=== PATIENT | male | born 1980 | race Two or more races ===

== ENCOUNTER 2017-08-22 11:37 | Outpatient (CLI) | payer OTHER ==
[~2017-08-22] VITALS: Ht 182.9 cm; Wt 129.3 kg
== END 2017-08-22 12:00 | disposition home or self-care (01) ==
LOC: OFIC 805 11:37
DX: H70.11 Chronic mastoiditis, right ear (principal); H69.83 Other specified disorders of Eustachian tube, bilateral; H90.11 Conductive hearing loss, unilateral, right ear, with unrestricted hearing on the contralateral side

== ENCOUNTER 2017-09-12 08:46 | Outpatient (CLI) | payer OTHER ==
[~2017-09-12] VITALS: Ht 182.9 cm; Wt 129.3 kg
== END 2017-09-12 09:00 | disposition home or self-care (01) ==
LOC: OFIC 805 08:46
DX: H70.11 Chronic mastoiditis, right ear (principal); J31.0 Chronic rhinitis; H61.23 Impacted cerumen, bilateral; H90.6 Mixed conductive and sensorineural hearing loss, bilateral

== ENCOUNTER 2017-12-26 11:39 | Outpatient (CLI) | payer OTHER ==
[~2017-12-26] VITALS: Ht 185.4 cm; Wt 131.1 kg
== END 2017-12-26 12:00 | disposition home or self-care (01) ==
LOC: OFIC 805 11:39
DX: H70.11 Chronic mastoiditis, right ear (principal); H61.23 Impacted cerumen, bilateral; H90.6 Mixed conductive and sensorineural hearing loss, bilateral

== ENCOUNTER 2018-04-17 07:41 | Outpatient (CLI) | payer OTHER ==
[~2018-04-17] VITALS: Ht 182.9 cm; Wt 131.1 kg
== END 2018-04-17 08:00 | disposition home or self-care (01) ==
LOC: OFIC 805 07:41
DX: H70.11 Chronic mastoiditis, right ear (principal); H61.23 Impacted cerumen, bilateral; H90.6 Mixed conductive and sensorineural hearing loss, bilateral; J31.0 Chronic rhinitis

== ENCOUNTER 2018-07-01 12:11 | Outpatient (CLI) | payer OTHER ==
[~2018-07-01] VITALS: Ht 182.9 cm; Wt 131.1 kg
== END 2018-07-01 12:35 | disposition home or self-care (01) ==
LOC: OFIC 805 12:11
DX: H70.10 Chronic mastoiditis, unspecified ear (principal); H61.23 Impacted cerumen, bilateral; H90.6 Mixed conductive and sensorineural hearing loss, bilateral; J31.0 Chronic rhinitis; J32.4 Chronic pansinusitis

== ENCOUNTER 2018-07-01 14:57 | Outpatient (CLI) | payer OTHER | END 2018-07-01 15:27 | disposition home or self-care (01) | LOC: TOM 14:57 | DX: J32.4 Chronic pansinusitis (principal) ==

== ENCOUNTER 2018-11-06 11:43 | Outpatient (CLI) | payer OTHER ==
[~2018-11-06] VITALS: Ht 182.9 cm; Wt 129.3 kg
== END 2018-11-06 12:00 | disposition home or self-care (01) ==
LOC: OFIC 805 11:43
DX: H70.11 Chronic mastoiditis, right ear (principal); H61.23 Impacted cerumen, bilateral; H90.6 Mixed conductive and sensorineural hearing loss, bilateral; J31.0 Chronic rhinitis; J32.4 Chronic pansinusitis

== ENCOUNTER 2019-02-19 11:42 | Outpatient (CLI) | payer OTHER ==
[~2019-02-19] VITALS: Ht 182.9 cm; Wt 129.3 kg
== END 2019-02-19 14:45 | disposition home or self-care (01) ==
LOC: OFIC 805 11:42
DX: H70.11 Chronic mastoiditis, right ear (principal); H61.23 Impacted cerumen, bilateral; H90.6 Mixed conductive and sensorineural hearing loss, bilateral; J31.0 Chronic rhinitis; J32.4 Chronic pansinusitis

== ENCOUNTER 2019-06-22 12:34 | Outpatient (CLI) | payer OTHER ==
[~2019-06-22] VITALS: Ht 182.9 cm; Wt 131.1 kg
== END 2019-06-22 16:16 | disposition home or self-care (01) ==
LOC: OFIC 805 12:34
DX: J31.0 Chronic rhinitis (principal); H61.23 Impacted cerumen, bilateral; H90.6 Mixed conductive and sensorineural hearing loss, bilateral; H70.891 Other mastoiditis and related conditions, right ear; R04.0 Epistaxis

== ENCOUNTER → 2019-10-19 14:40 | Outpatient (CLI) | payer OTHER | END | disposition home or self-care (01) | LOC: OFIC 805 14:30 | PROVIDERS: ATTEND Otolaryngology | DX: H72.91 Unspecified perforation of tympanic membrane, right ear (principal); J32.4 Chronic pansinusitis; J31.0 Chronic rhinitis; H90.6 Mixed conductive and sensorineural hearing loss, bilateral; H61.23 Impacted cerumen, bilateral ==

== ENCOUNTER 2019-11-08 16:05 | Outpatient (CLI) | payer OTHER | END 2019-11-08 16:37 | disposition home or self-care (01) | LOC: TOM 16:05 | PROVIDERS: ATTEND Otolaryngology | DX: H72.93 Unspecified perforation of tympanic membrane, bilateral (principal) ==

== ENCOUNTER 2019-11-12 08:50 | Outpatient (CLI) | payer OTHER | END 2019-11-12 09:30 | disposition home or self-care (01) | LOC: OFIC 805 08:50 | PROVIDERS: ATTEND Otolaryngology Otology & Neurotology | DX: H70.11 Chronic mastoiditis, right ear (principal); H90.6 Mixed conductive and sensorineural hearing loss, bilateral; H72.91 Unspecified perforation of tympanic membrane, right ear ==

== ENCOUNTER 2019-12-27 13:51 | Outpatient (CLI) | payer OTHER ==
[2019-12-27] MEDS ORDERED: LIPITOR40 M1 (15:03)
[2020-01-03] MEDS ORDERED: ZYRTEC PO (08:07)
[2020-01-03] MEDS ORDERED: ATORVASTATIN CA20 MG PO (08:07)
[2020-01-03] MEDS ORDERED: IRBESARTAN PO (08:08)
== END 2019-12-27 19:19 | disposition home or self-care (01) ==
LOC: OFIC 805 13:51
PROVIDERS: ATTEND Otolaryngology Otology & Neurotology
DX: H72.91 Unspecified perforation of tympanic membrane, right ear (principal); H61.23 Impacted cerumen, bilateral; H90.6 Mixed conductive and sensorineural hearing loss, bilateral

== ENCOUNTER 2020-01-07 06:00 | Day surgery (SDC) | payer OTHER ==
[~2020-01-07 06:00] MED LIST: ATORVASTATIN CA20 MG PO; IRBESARTAN PO; LIPITOR40 M1; ZYRTEC PO
[2020-01-07] MEDS ORDERED: CIPRODEX OTIC7.5 ML OT (11:24)
[2020-01-07] MEDS ORDERED: KEFLEX500 MG PO (11:25)
[2020-01-07] MEDS ORDERED: ZOFRAN8 MG TL (11:26)
[2020-01-07] MEDS ORDERED: PERCOCET 5-3251 EACH PO (11:26)
== END 2020-01-07 15:40 | disposition home or self-care (01) ==
LOC: CIR.AMB 06:00
PROVIDERS: ATTEND Otolaryngology Otology & Neurotology
DX: H71.01 Cholesteatoma of attic, right ear (principal); H80.01 Otosclerosis involving oval window, nonobliterative, right ear; Z20.828 Contact with and (suspected) exposure to other viral communicable diseases; H74.21 Discontinuity and dislocation of right ear ossicles; H71.11 Cholesteatoma of tympanum, right ear; H90.A11 Conductive hearing loss, unilateral, right ear with restricted hearing on the contralateral side; H72.01 Central perforation of tympanic membrane, right ear

== ENCOUNTER 2020-01-14 10:06 | Outpatient (CLI) | payer OTHER ==
[~2020-01-14 10:06] MED LIST changes: +CIPRODEX OTIC7.5 ML OT; +KEFLEX500 MG PO; +PERCOCET 5-3251 EACH PO; +ZOFRAN8 MG TL
== END 2020-01-14 10:13 | disposition home or self-care (01) ==
LOC: OFIC 805 10:06
PROVIDERS: ATTEND Otolaryngology Otology & Neurotology
DX: H72.91 Unspecified perforation of tympanic membrane, right ear (principal); H71.91 Unspecified cholesteatoma, right ear

== ENCOUNTER 2020-02-18 09:03 | Outpatient (CLI) | payer OTHER | END 2020-02-18 10:00 | disposition home or self-care (01) | LOC: OFIC 805 09:03 | PROVIDERS: ATTEND Otolaryngology Otology & Neurotology | DX: H71.91 Unspecified cholesteatoma, right ear (principal); H72.91 Unspecified perforation of tympanic membrane, right ear; H90.6 Mixed conductive and sensorineural hearing loss, bilateral ==

== ENCOUNTER → 2020-03-08 | Outpatient (CLI) | payer OTHER | END | disposition home or self-care (01) | LOC: OFIC 805 13:00 | PROVIDERS: ATTEND Otolaryngology Otology & Neurotology | DX: H61.22 Impacted cerumen, left ear (principal); H71.91 Unspecified cholesteatoma, right ear; H72.93 Unspecified perforation of tympanic membrane, bilateral ==

== ENCOUNTER 2020-06-21 14:35 | Outpatient (CLI) | payer OTHER | END 2020-06-21 15:44 | disposition home or self-care (01) | LOC: OFIC 805 14:35 | PROVIDERS: ATTEND Otolaryngology Otology & Neurotology | DX: H90.6 Mixed conductive and sensorineural hearing loss, bilateral (principal); H71.91 Unspecified cholesteatoma, right ear; H72.92 Unspecified perforation of tympanic membrane, left ear; H61.23 Impacted cerumen, bilateral; H70.11 Chronic mastoiditis, right ear ==